=== PATIENT | male | born 1985 | race Caucasian/White ===

== ENCOUNTER 2020-03-26 13:54 | Emergency (ER) | payer MEDICAID ==
[~2020-03-26] VITALS: Ht 182.9 cm; Wt 72.6 kg
[2020-03-26 14:04] VITALS: BP 110/62
--- NOTE | 2020-03-26 15:16 | NUR ---
[employer] INSPECTOR AT BEDSIDE FOR XRAY.
[2020-03-26] MEDS ORDERED: IBUPROFEN 600 MG TABLET PO ONE (15:30)
[2020-03-26] MEDS ORDERED: IBUP-1955 PO (15:44)
[2020-03-26] MEDS ORDERED: IBUPROFEN 600 MG TABLET ONE (15:50)
--- NOTE | 2020-03-26 15:51 | NUR ---
Patient discharged to home in stable condition. Written and verbal after care instructions given. Patient verbalizes understanding of instruction.
== END 2020-03-26 15:53 | disposition home or self-care (01) ==
LOC: ER 13:59
DX: S90.31XA Contusion of right foot, initial encounter (principal); W20.8XXA Other cause of strike by thrown, projected or falling object, initial encounter; Y93.89 Activity, other specified; Y92.89 Other specified places as the place of occurrence of the external cause; Y99.8 Other external cause status
CPT/HCPCS: 73630-TC